=== PATIENT | male | born 1960 | race African-American/Black ===

== ENCOUNTER 2019-03-01 11:52 | Emergency (ER) | payer OTHER ==
[~2019-03-01] VITALS: Ht 175.3 cm; Wt 94.3 kg
[2019-03-01 12:12] VITALS: Ht 175.3 cm; Wt 94.3 kg
[2019-03-01 12:56] LABS: CALCIUM 8.3 mg/dL (8.5-10.1); CARBON DIOXIDE 25.1 mmol/L (21-32); CREATININE SERUM 1.6 mg/dL (0.7-1.3); POTASSIUM SERUM 3.9 mmol/L (3.5-5.1)
[2019-03-01 13:00] LABS: BASOPHIL % 0.7 % (0-2); PLATELET COUNT 203 x10^3mcL (130-400); RED CELL DISTRIBUTION WIDTH 15.3 % (11.5-14.5)
[2019-03-01 13:01] LABS: ALBUMIN 3.3 g/dL (3.4-5.0); BILIRUBIN TOTAL 0.35 mg/dL (0.20-1.00); TOTAL PROTEIN, SERUM 6.8 g/dL (6.4-8.2)
[2019-03-01 18:01] VITALS: BP 106/70
== END 2019-03-01 16:03 | disposition home or self-care (01) ==
LOC: ED 11:52
PROVIDERS: Emergency Medicine
DX: I20.9 Angina pectoris, unspecified (principal)
CPT/HCPCS: 83880; J3010; Q0092

== ENCOUNTER 2019-03-24 01:26 | Inpatient (IN) | payer OTHER ==
[2019-03-24] VITALS (7 sets, daily range): BP systolic 115–186; BP diastolic 69–119; Ht 175.3 cm; Wt 100.0 kg
[~2019-03-24] VITALS: Ht 175.3 cm; Wt 100.0 kg
--- NOTE | 2019-03-24 01:38 | NUR ---
PT CAME TO ED CO CHEST PAIN X6 HOURS. PT STS THE PAIN IS PRESSURE PAIN THAT RADIATES TO THE BACK. PT A/O X4. NO S/S OF DISTRESS. RESP E/U. DR. BORDEN CONPLETED MSE. 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 PT WAS GIVEN 6 ROUND OF NITRO PRIOR TO ARRIVAL THAT UNSUCCESSFULLY RELIEVED PAIN. PT STS HE WAS LAYING DOWN WHEN THE PAIN STARTED. COMFORT MEASURES IMPLEMENTED. LAB AT BEDSIDE FOR BLOOD DRAW. EKG PREFORMED. CIM STAFF AT BEDSIDE. WILL CONTINUE TO MONITOR.
[2019-03-24] MEDS ORDERED: CARVEDILOL25 M1 PO (01:50)
[2019-03-24] MEDS ORDERED: ACETAMINOPHEN A1 TAB PO (01:50)
[2019-03-24] MEDS ORDERED: CHLORTHALIDONE25 MG PO (01:51)
[2019-03-24] MEDS ORDERED: PRO60 PO (01:51)
[2019-03-24] MEDS ORDERED: LISINOPRIL40 MG PO (01:51)
[2019-03-24] MEDS ORDERED: [UNRECOGNIZED DRUG - OTHER] (01:52)
[2019-03-24] MEDS ORDERED: ALDACTONE50 MG PO (01:52)
[2019-03-24] MEDS ORDERED: TRI-VI-SOL50 ML (01:52)
[2019-03-24] MEDS ORDERED: EFFIENT10 M2 PO (01:53)
[2019-03-24] MEDS ORDERED: HYDRALAZINE HC100 MG PO (01:53)
[2019-03-24] MEDS ORDERED: KAPVAY0.1 MG PO (01:53)
[2019-03-24] MEDS ORDERED: RANEXA1000 M2 PO (01:53)
[2019-03-24] MEDS ORDERED: LIPITOR80 MG PO (01:53)
[2019-03-24] MEDS ORDERED: ISOSORBIDE MONO60 MG PO (01:54)
[2019-03-24] MEDS ORDERED: NEU300 PO (01:54)
[2019-03-24] MEDS ORDERED: ASPIR 8181 MG PO (01:54)
[2019-03-24] MEDS ORDERED: NIT0.4 SL (01:54)
[2019-03-24 01:59] LABS: BASOPHIL % 0.8 % (0-2); PLATELET COUNT 195 x10^3mcL (130-400)
[2019-03-24 02:00] LABS: RED CELL DISTRIBUTION WIDTH 15.8 % (11.5-14.5)
[2019-03-24 02:06] LABS: CALCIUM 8.6 mg/dL (8.5-10.1); CARBON DIOXIDE 26.4 mmol/L (21-32); CHLORIDE SERUM 104 mmol/L (98-107); CREATININE SERUM 1.3 mg/dL (0.7-1.3); GFR1 > 60 mL/min; GLUCOSE SERUM 106 mg/dL (74-106); SODIUM SERUM 139 mmol/L (136-145)
[2019-03-24 02:10] LABS: ALBUMIN 3.6 g/dL (3.4-5.0); ALKALINE PHOSPHATASE 120 U/L (46-116); ALT/SGPT 38 U/L (16-63); AST/SGOT 22 U/L (15-37); BILIRUBIN TOTAL 0.26 mg/dL (0.20-1.00); LIPASE 69 IU/L (73-393); TOTAL PROTEIN, SERUM 7.3 g/dL (6.4-8.2); TRIGLYCERIDES 124 mg/dL (<150)
[2019-03-24 02:14] LABS: CHOLESTEROL 133 mg/dL (<200); CHOLESTEROL/HDL RATIO 4.3; HDL CHOLESTEROL 31 mg/dL (40-60)
[2019-03-24 02:20] LABS: T3 TOTAL 1.33 ng/mL
[2019-03-24 02:26] LABS: FREE T4 0.97 ng/dL (0.76-1.46); FREE THYROXINE INDEX 2.7 ug/dL (1.4-4.5); T4(THYROXINE) 6.8 ug/dL (4.7-13.3)
[2019-03-24 03:40] LABS: MAGNESIUM 1.7 mg/dL (1.8-2.4)
--- NOTE | 2019-03-24 03:40 | NUR ---
REPORT CALLED TO HENRI POOL TO ASSUME CARE OF PT
--- NOTE | 2019-03-24 03:53 | NUR ---
RECEIVED PT FROM ED VIA EMILY, CAME IN DUE TO CHEST PAIN. AAOX4. C/O LIGHTHEADEDNESS AND DIZZINESS. ABLE TO FOLLOW COMMADNS. C/O MILD SOB, LUNG SOUNDS CTA. O2 SAT=98% ON 5LPM/NC. C/O 8/10 LEFT SIDED CHEST PAIN RADIAITING ON THE LEFT JAW AND SHOULDER, SR W/ BBB ON THE MONITOR. C/O NUMBNESS ON THE LEFT FINGERS. DENIES ABDOMINAL DISCOMFORT. VOIDS. IV SITE PATNENT AND INTACT. W/ CLONIDINE PATCH ON THE LEFT SHOULDER (DATED 03/18/19). JV=066/125, REPEAT JN=052/119. PRIMARY NURSE HENRI AT BEDSIDE FOR CONTINUITY OF CARE
--- NOTE | 2019-03-24 04:05 | NUR ---
PT TRANSFERRED TO TELE FLOOR ACCOMPANIED BY NURSE, EMT, AND CIM STAFF. NO S/S OF DISTRESS. RESP E/U. NURSE MADE AWARE OF FLUIDS ON TRANSFER. PT CONNECTED TO MONITOR. DURING TRANSFER. IV SITE PATENT. NO S/S OF INFILTRATION. RN AT BEDSIDE TO ASSUME CARE.
--- NOTE | 2019-03-24 06:12 | NUR ---
PT COMPLIED WITH NURSING CARE THROUGHOUT THE SHIFT. COMFORT AND SAFETY MEASURES MAINTAINED. ALL NEEDS ASSESSED AND ATTENDED TO. CALL LIGHT WITHIN REACH. WILL CONTINUE TO MONITOR AND ENDORSE CARE TO DAY SHIFT NURSE
--- NOTE | 2019-03-24 08:00 | NUR ---
SHIFT ASSESSMENT DONE. PATIENT A/A/OX4; CLEAR SPEECH. TELE#14; NSR; HR = 78. C/O CHEST PAIN ON 02/08, NO REDIATION NOW. GOOD PAIN RELIEF BY MORPHINE 2MG IVP Q4H. TOLERATED 2GM SODIUM DIET. IVHL'D TO RAC. VOID FREELY VIA URINAL. AMBULATORY. CALL LIGHT IN REACH.
--- NOTE | 2019-03-24 09:15 | NUR ---
DR. RUBALCAVA CAME TO SEE PATIENT.
--- NOTE | 2019-03-24 13:45 | NUR ---
DR. TORRE SAW PATIENT. NEW ORDER OF CARDIAC STRESS TEST TOMORROW AT 10 AM.
[2019-03-24 15:33] LABS: microscopic required? YES; urine erythrocyte NEGATIVE (NEGATIVE)
[2019-03-24 15:35] LABS: AMPHETAMINE QUAL UR NONE DETECTED (See below)
--- NOTE | 2019-03-24 19:00 | NUR ---
CONDITION NO SIGNIFICANT CHANGE. ASKED MORPHINE Q4H FOR CHEST PAIN. GOOD CHEST PAIN RELIEF BY MORPHINE 2MG IVP. GOOD APPETITE. VOID VIA URINAL. NO BM THIS SHIFT. IVHL'D TO RAC. ENDORSED CARE TO NOC NURSE.
--- NOTE | 2019-03-24 19:20 | NUR ---
REPORT RECEIVED FROM DAY SHIFT RN. PATIENT WAS SEEN AND IS RESTING COMFORTABLY IN BED. NO DISTRESS NOTED. BREATHING EVEN AND UNLABORED ON 5L NC. NO SOB OR RESP DISTRESS NOTED. C/O TOLERABLE CHEST PAIN, BACK PAIN 5/10. AWARE MORPHINE IS NOT DUE AT THIS TIME. IV TO THE RAC. SALINE LOCK. PATENT AND INTACT. NO REDNESS OR SWELLING NOTED. COMFORT AND SAFETY MEASURES IN PLACE. BED IS LOCKED AND IN THE LOWEST POSITION. SIDE RAILS UP X2. CALL LIGHT IS WITHIN REACH. WILL CONTINUE TO MONITOR.
--- NOTE | 2019-03-24 22:37 | NUR ---
C/O 01/08 CHEST PAIN, BUT STATES IT'S IMPROVING FROM WHEN HE WAS ADMITTED. PRN MORPHINE WAS ADMINISTERED PRESCRIBED. MED EDUCATION GIVEN. NO SOB OR RESP DISTRESS NOTED. BREATHING EVEN AND UNLABORED ON 5L NC. SAFETY MEASURES IN PLACE. PLACE PATIENT ON NEW GOWN. LOLLY CRACKER, PUDDING, WATER, AND SPRITE GIVEN. PATIENT IS AWARE HE WILL BE NPO AFTER MIDNIGHT. CALL LIGHT IS WITHIN REACH. WILL CONTINUE TO MONITOR.
--- NOTE | 2019-03-25 02:39 | NUR ---
CALLED REPORTING CHEST PAUN 12/09. LOW BP 105/56M, SO MORPHINE CANNNOT BE GIVEN AT THIS TIME. PATIENT IS AWARE. PRN NORCO ADMINSITERED INSTEAD (SEE EMAR). MED EDUCATION GIVEN. NO DISTRESS NOTED. BREATHING EVEN AND UNLABORED ON 5L NC. SAFETY MEASURES IN PLACE. CALL LIGHT IS WITHIN REACH. WILL CONTINUE TO MONITOR.
[2019-03-25 05:23] VITALS: BP 98/55
--- NOTE | 2019-03-25 05:49 | NUR ---
RESTED IN LONG INTERVALS THROUGHOUT THE NIGHT. NO ACUTE CHANGES NOTED. BREATHING EVEN AND UNLABORED ON 5L NC. NO SOB NOTED. NO DISTRESS NOTED. C/O CHEST PRESSURE THROUGHOUT THE NIGHT. TROP NEG X3. SCHEDULED FRO CARDIAC STRESS TEST AT 10AM. PATIENT IS AWARE AND IS NPO. IV TO THE RAC. SALINE LOCK, PATENT AND INTACT. NO REDNESS OR SWELLING NOTED. COMFORT AND SAFETY MEASURES IN PLACE. ALL NEEDS AND CONCERNS ADDRESSED. CALL LIGHT IS WITHIN REACH. WILL ENDORSE CARE TO DAY SHIFT RN.
--- NOTE | 2019-03-25 06:36 | NUR ---
PRN NORCO GIVEN FOR CHEST PRESSURE 12/09. LOW BP 97/62 (77), HR 80 , SO MORPHINE COULDN'T BE GIVEN. PATIENT AWARE. WILL ENDORSE CARE TO DAY SHIFT RN.
[2019-03-25 07:35] LABS: CALCIUM 8.5 mg/dL (8.5-10.1); CARBON DIOXIDE 26.2 mmol/L (21-32); CREATININE SERUM 1.9 mg/dL (0.7-1.3); POTASSIUM SERUM 4.5 mmol/L (3.5-5.1)
--- NOTE | 2019-03-25 07:40 | NUR ---
RCEIVED PATIENT RESTING IN BED, NO ACUTE DISTRESS NOTED. PATIENT DENIES PAIN. PATIENT C/O DIZZINESS, DR. RUBALCAVA MADE AWARE. TELE MONITOR IN PLACE. PATIENT DENIES SOB, ON 5L NC. URINAL AT BEDSIDE. GENERALIZED WEAKNESS NOTED. IV TO RAC SALINE LOCK, IV SITE CDI & PATENT, NO S/S OF INFILTRATION. CALL LIGHT WITHIN REACH, BED IN LOW POSITION, WILL CONTINUE TO MONITOR.
[2019-03-25 07:46] LABS: BASOPHIL % 0.7 % (0-2); PLATELET COUNT 183 x10^3mcL (130-400)
[2019-03-25 07:53] LABS: RED CELL DISTRIBUTION WIDTH 16.5 % (11.5-14.5)
[2019-03-25 08:02] VITALS: BP 101/66
--- NOTE | 2019-03-25 09:10 | NUR ---
PATIENT WENT DOWN FOR STRESS TEST AT THIS TIME.
--- NOTE | 2019-03-25 09:30 | NUR ---
DR RUBALCAVA AWARE PATIENTS WBC WAS 3.5.
--- NOTE | 2019-03-25 12:04 | NUR ---
PATIENT ARRIVED BACK FROM STRESS TEST.
--- NOTE | 2019-03-25 12:09 | NUR ---
PATIENT WAS C/O PAIN 02/08 TO RIGHT WRIST, MEDICATED PATIENT WITH NORCO PER PROTOCOL (SEE EMAR). EDUCATED PATIENT ON PAIN MANAGEMENT. CALL LIGHT WITHIN REACH, BED IN LOW POSITION, WILL CONTINUE TO MONITOR.
--- NOTE | 2019-03-25 12:20 | NUR ---
DR RUBALCAVA AWARE PATIENT FELL DOWN IN [place] for [employer] MED. DR. RUBALCAVA AWARE PATIENTS RIGHT WRIST WAS HURTING AND FEELING PRESSURE. DR. RUBALCAVA GAVE TELEPHONE ORDERS FOR XRAY TO RIGHT WRIST, WILL CARRY OUT ORDERS AT THIS TIME.
--- NOTE | 2019-03-25 13:00 | NUR ---
MOONER AT BEDSIDE.
[2019-03-25 13:07] VITALS: BP 131/88
--- NOTE | 2019-03-25 13:18 | NUR ---
PATIENT IS TO BE DISCHARGED TO [facility], PATIENT RECEIVED COPY OF D/C INSTUCTIONS, PATIENT UNDERSTANDS & AGREES WITH PLAN OF CARE, INCLUDING MEDICATIONS & FOLLOW UP. ALL QUESTIONS AND CONCERNS ADDRESSED. CALL LIGHT WITHIN REACH, BED IN LOW POSITION, WILL CONTINUE TO MONITOR.
--- NOTE | 2019-03-25 14:20 | NUR ---
DR RUBALCAVA AWARE PATIENT XRAY TO RIGHT WRIST CAME BACK NEGATIVE, WITH PROBABLE DIABETIC VASCULOPATHY. DR. RUBALCAVA STATED OKAY FOR DISCHARGE.
[2019-03-25 14:38] VITALS: BP 131/88
--- NOTE | 2019-03-25 16:27 | NUR ---
PATIENT WENT DOWN DOWN VIA WHEELCHAIR. LA KING X3 AT BEDSIDE, IV TO RAC REMOVED, CATH INTACT. ARMBANDS & TELE MONITOR REMOVED.
== END 2019-03-25 16:10 | disposition other institution (70) | DRG 305 ==
LOC: ED 01:26 → DU 03:13
PROVIDERS: Specialist; ADMIT Internal Medicine
DX: I16.0 Hypertensive urgency (principal); I13.0 Hypertensive heart and chronic kidney disease with heart failure and stage 1 through stage 4 chronic kidney disease, or unspecified chronic kidney disease; D57.3 Sickle-cell trait; I25.10 Atherosclerotic heart disease of native coronary artery without angina pectoris; I50.9 Heart failure, unspecified; N18.9 Chronic kidney disease, unspecified; M54.5 Low back pain; G89.29 Other chronic pain; E78.5 Hyperlipidemia, unspecified; I25.2 Old myocardial infarction; Z95.2 Presence of prosthetic heart valve; Z95.1 Presence of aortocoronary bypass graft; Z95.5 Presence of coronary angioplasty implant and graft; Z79.899 Other long term (current) drug therapy
CPT/HCPCS: 83880; 84439; A9500; G0378; J0360; J2270; J2405; J2785; J3490; J7030; Q0092

== ENCOUNTER 2019-04-14 01:38 | Inpatient (IN) | payer OTHER ==
[~2019-04-14] VITALS: Ht 175.3 cm; Wt 97.1 kg
[~2019-04-14 01:38] MED LIST: ACETAMINOPHEN A1 TAB PO; ALDACTONE50 MG PO; ASPIR 8181 MG PO; CARVEDILOL25 M1 PO; CHLORTHALIDONE25 MG PO; EFFIENT10 M2 PO; HYDRALAZINE HC100 MG PO; ISOSORBIDE MONO60 MG PO; KAPVAY0.1 MG PO; LIPITOR80 MG PO; LISINOPRIL40 MG PO; NEU300 PO; NIT0.4 SL; PRO60 PO; RANEXA1000 M2 PO; TRI-VI-SOL50 ML; [UNRECOGNIZED DRUG - OTHER]
[2019-04-14 01:39] VITALS: Ht 175.3 cm; Wt 97.1 kg
[2019-04-14 02:06] LABS: BASOPHIL % 0.5 % (0-2); PLATELET COUNT 213 x10^3mcL (130-400)
[2019-04-14 02:13] LABS: CALCIUM 8.8 mg/dL (8.5-10.1); CARBON DIOXIDE 25.2 mmol/L (21-32); CREATININE SERUM 1.4 mg/dL (0.7-1.3); POTASSIUM SERUM 3.7 mmol/L (3.5-5.1)
[2019-04-14 02:19] LABS: ALBUMIN 3.8 g/dL (3.4-5.0); BILIRUBIN TOTAL 0.25 mg/dL (0.20-1.00); TOTAL PROTEIN, SERUM 7.7 g/dL (6.4-8.2)
[2019-04-14 02:26] LABS: RED CELL DISTRIBUTION WIDTH 15.3 % (11.5-14.5)
[2019-04-14] MEDS ORDERED: ASPIR 8181 MG PO (02:45)
[2019-04-14] MEDS ORDERED: ACETAMINOPHEN A1 TAB PO (02:45)
[2019-04-14] MEDS ORDERED: ATORVASTATIN CA80 M1 PO (02:46)
[2019-04-14] MEDS ORDERED: CARVEDILOL25 M1 PO (02:47)
[2019-04-14] MEDS ORDERED: CORE25 PO (02:48)
[2019-04-14] MEDS ORDERED: CHLORTHALIDONE25 MG PO (02:49)
[2019-04-14] MEDS ORDERED: NEU300 PO (02:50)
[2019-04-14] MEDS ORDERED: ISOSORBIDE MONO60 MG PO (02:51)
[2019-04-14] MEDS ORDERED: LISINOPRIL20 MG PO (02:51)
[2019-04-14] MEDS ORDERED: PRO60 (02:52)
[2019-04-14] MEDS ORDERED: NITROSTAT0.4 MG SL (02:53)
[2019-04-14] MEDS ORDERED: EFFIENT10 M2 PO (02:54)
[2019-04-14] MEDS ORDERED: RANEXA1000 M2 (02:55)
[2019-04-14] MEDS ORDERED: [UNRECOGNIZED DRUG - MIXTURE] (02:56)
[2019-04-14] MEDS ORDERED: KEN025C TOP (02:56)
--- NOTE | 2019-04-14 06:06 | NUR ---
REPORT GIVEN TO DANIEL POOL PT OT BE TRANSPORTED VIA [facility] WITH URI AND RN
--- NOTE | 2019-04-14 06:42 | NUR ---
CAME IN A 58 YEARS OLD MALE AWAKE, ALERT AND ORIENTED CAME IN VIA GURNEY ACCOMPANIED BY ER STAFF AND CIM OFFICERS. C/O CRUSHING LEFT SIDED CHESTPAIN. MEDICATED IN ER WITH NITRO SL AMD MORPHINE 6MG IVP. TELE# 22 NSR WITH BBB ON MONITOR. KEPT IN COMFORT AND ORIENTED TO ROOM AND DEVICES. IV TO LH HEPLOCKED. WILL ENDORSE CONTINOUS CARE TO AM SHIFT.
--- NOTE | 2019-04-14 07:25 | NUR ---
RECEIVED HAND OFF REPORT FROM NIGHT NURSE. PATIENT SITTING UP IN BED, A/0 X4, ON 2LPM O2 VIA NC, COMPLAINING OF 6/10 PAIN TO CHEST, TELE [address] SHOWING NSR. NO ORDERS CURRENTLY IN CHART. WILL CONTACT DR RUBALCAVA FOR ORDERS. OREINTED PATIENT TO CALL LIGHT SYSTEM AND INSTRUCTED TO USE CALL LIGHT IF NEEDING ASSITANCE. , WILL CONTINUE TO MONITOR
[2019-04-14 07:58] LABS: CHOLESTEROL/HDL RATIO 6.2
[2019-04-14 08:04] VITALS: BP 166/110
--- NOTE | 2019-04-14 08:25 | NUR ---
ORDERS ENTERED BY DR RUBALCAVA. MURALI BLOOD PRESSURE IS ELEVATED MEDICATED PER MAR. MORPHINE 2MG ADMINISTERED FOR PAIN. WILL REASSESS PAIN.
--- NOTE | 2019-04-14 09:50 | NUR ---
DR RUBALCAVA ROUNDED ON PATIENT, UPDATED ON PLAN OF CARE, CONSULTED DR TORRE AND WILL AWAIT HIS RECOMMENDATIONS. DR RUBALCAVA STATED THAT PATIENT DOES NOT NEED TRIAMCINOLONE CREAM THAT HE HAD BEEN TAKING AT THE CORRECTION ULES PATIENT WANTS TO USE IT.
--- NOTE | 2019-04-14 11:33 | NUR ---
REPEAT ECHO PENDING. ECHO STUDY DONE ON LAST ADIMISSION DATE 03/24/19
--- NOTE | 2019-04-14 13:20 | NUR ---
PATIENT COMPLAING OF 6/10 PAIN TO UPPER LEFT CHEST, NON RADIATING. PATIENT DID NOT WANT NITRO STATING THAT IT HAS NOT BEEN WORKING FOR HIM. MEDICATED WITH MORPHINE PER MAR, BLOOD PRESSURE ELEVATED AT THIS TIME. WILL REASSESS
[2019-04-14 14:04] VITALS: BP 152/85
[2019-04-14 15:03] VITALS: BP 144/102
[2019-04-14 16:45] VITALS: BP 139/98
[2019-04-14 16:53] VITALS: BP 141/99
--- NOTE | 2019-04-14 18:15 | NUR ---
PATIENT COMPLAINING OF 6/10 PAIN TO LEFT UPPER CHEST, WORSE ON DEEP BREATHING. MEDICATED PER MAR. BLOOD PRESSURE STABLE. CALL LIGHT WITHIN REACH, X2 CORRECTIONAL OFFICERS IN ROOM
--- NOTE | 2019-04-14 19:35 | NUR ---
RECEIVED PT FROM DAY SHIFT RN. PT AAOX4 DENIES MCKEON/DIZZINESS. PT BREATHING EVEN AND UNLABORED ON NC 2L/MIN. NO SOB NOTED. TELE# 22 NSR HR 59. PT DENIES CHEST PAIN/PRESSURE. IV LH PATENT, SL. ABD SOFT/ROUND ACTIVE BOWEL SOUNDS. DENIES ABD PAIN/N/V. NO SIGNS OF DISTRESS. CALL BUTTON WITHIN REACH. SAFETY PRECAUTIONS IN PLACE. GUARDS AT BEDSIDE. WILL CONTINUE TO MONITOR.
[2019-04-14 20:50] VITALS: BP 146/101
--- NOTE | 2019-04-14 23:12 | NUR ---
PT REQUESTING PAIN MEDICATION FOR BODY WEAKNESS. MEDICATED PER EMAR. CALL BUTTON WITHIN REACH. SAFETY PRECAUTIONS IN PLACE. WILL CONTINUE TO MONITOR.
--- NOTE | 2019-04-15 01:10 | NUR ---
PT RESTING. BREATHING EVEN AND UNLABORED. NO SIGNS OF DISTRESS. CALL BUTTON WITHIN REACH. SAFETY PRECAUTIONS IN PLACE. WILL CONTINUE TO MONITOR. GUARDS AT BEDSIDE.
--- NOTE | 2019-04-15 03:33 | NUR ---
PT RESTING. BREATHING EVEN AND UNLABORED. NO SIGNS OF DISTRESS NOTED. CALL BUTTON WITHIN REACH. SAFETY PRECAUTIONS IN PLACE. WILL CONTINUE TO MONITOR.
--- NOTE | 2019-04-15 05:13 | NUR ---
PT SLEPT MOST OF THE NIGHT WITH NO SIGNS OF DISTRESS. BREATHING EVEN AND UNLABORED ON NC 2L/MIN, NO SOB NOTED. IV PATENT, SL. PT REPORTED HAVING PAIN X1, MEDICATED PER EMAR WITH SOME RELEIF. PT DENIES ANY PAIN/DISTRESS AT THIS TIME. CALL BUTTON WITHIN REACH. SAFETY PRECAUTIONS IN PLACE. WILL CONTINUE TO MONITOR AND ENDORSE CARE TO DAY SHIFT RN. TWO GUARDS AT BEDSIDE.
--- NOTE | 2019-04-15 06:33 | NUR ---
PT REPORTED HAVING LEFT SIDE PAIN 5/10. MEDICATED PER EMAR. CALL BUTTON WITHIN REACH. SAFETY PRECAUTIONS IN PLACE. WILL CONTINUE TO MONITOR.
[2019-04-15 06:40] LABS: BASOPHIL % 0.9 % (0-2); PLATELET COUNT 171 x10^3mcL (130-400)
[2019-04-15 06:41] VITALS: BP 134/79
[2019-04-15 06:41] LABS: RED CELL DISTRIBUTION WIDTH 16.7 % (11.5-14.5)
[2019-04-15 06:49] LABS: CALCIUM 8.8 mg/dL (8.5-10.1); CREATININE SERUM 1.4 mg/dL (0.7-1.3); POTASSIUM SERUM 3.8 mmol/L (3.5-5.1)
--- NOTE | 2019-04-15 07:24 | NUR ---
PT RESTING, DENIES PAIN. NO SIGNS OF DISTRESS NOTED. GUARDS AT BEDSIDE. ENDORSED CARE TO DAY SHIFT RN, ALL QUESTIONS ADDRESSED.
--- NOTE | 2019-04-15 07:30 | NUR ---
RECEIVED PT FROM AUTO GARAGE MECHANIC. PT AWAKE, ALERT. A/OX4. PT ON 2LNC/RA WITH NO RESP DISTRESS NOTED. PT NOT WEARING NC AT THIS TIME. PT ON TELE 22, REPORTS CP 6/10 BUT TOLERABLE AT THIS TIME AFTER BEING MEDICATED BY NOC NURSE. LUNGS CTA. PERIPHERAL PULSES PALPABLE, NO EDEMA NOTED. IV ACCESS LH CDI, SALINE LOCKED. ACTIVE BS NOTED. PT DENIES ISSUES WITH ELIMINATION. SAFETY MEASURES IN PLACE, BED LOW AND LOCKED. CALL LIGHT WITHIN REACH.
[2019-04-15 09:47] VITALS: BP 131/86
--- NOTE | 2019-04-15 11:06 | NUR ---
PT COMPLAINING OF PAIN TO LEFT UPPER CHEST 01/08. PT REQUESTING MORPHINE, MED ADMINISTERED ORDERED PRN. (SEE EMAR). DR TORRE AT BEDSIDE AT THIS TIME. WILL MONITOR.
[2019-04-15 11:17] LABS: microscopic required? NO
--- NOTE | 2019-04-15 11:59 | NUR ---
PT REPORTS SOME RELIEF AFTER ADMINISTRATION OF MORPHINE. PAIN 11/08/ SAFETY MEASURES MAINTAINED. WILL CONTINUE TO MONITOR.
[2019-04-15 12:15] LABS: AMPHETAMINE QUAL UR NONE DETECTED (See below)
[2019-04-15 12:19] LABS: urine erythrocyte NEGATIVE (NEGATIVE)
[2019-04-15 12:28] VITALS: BP 130/81
--- NOTE | 2019-04-15 13:09 | NUR ---
DUE MEDICATIONS ADMINISTERED INCLUDING SCHEDULED TYLENOL WITH CODEINE. PT TOLERATED WELL. PT ASKING FOR NORCO, PAIN 12/09. PT EDUCATION PROVIDED REGARDING POTENTIAL DANGERS OF AMINISTERING TYLENOL WITH CODEINE AND NORCO TOO CLOSE TOGETHER. PT VERBALIZED UNDERSTANDING. WILL MONITOR AND ADMINISTER NORCO AT A LATER TIME.
--- NOTE | 2019-04-15 15:40 | NUR ---
PT COMPLAINING OF PAIN TO CHEST 12/09, ASKING FOR NORCO. MED ADMINISTERED ORDERED PRN. PT DESCRIBES IT CONSTANT PRESSURE. WILL CONTINUE TO MONITOR.
[2019-04-15 16:04] VITALS: BP 139/86
--- NOTE | 2019-04-15 16:34 | NUR ---
PT REPORTING CHEST PAIN 8/10 PRESSURE. PT REPORTING DIAPHORESIS. NITROSTAT ADMINISTERED ORDERED PRN.
--- NOTE | 2019-04-15 16:45 | NUR ---
AKIL POOL REPORTED PT HAVING 8/10 CHEST PAIN PRESSURE IN NATURE AND SHE IS NOW TO ADMINISTER NITRO SL ORDERED. CALLED AND SPOKE TO (HOSPITAL AIDE) AND MADE HIM AWARE OF CHEST PAIN, NEW ORDER RECEIVED STAT TROPONIN AND STAT EKG AND TO TRANSFER PT TO HIGHER LEVEL OF CARE FOR REPEAT ANGIOGRAM DUE TO RECURRING CHEST PAIN. CALLED AND SPOKE TO PATTIE FROM CASE MANAGEMENT AND MADE HER AWARE OF ABOVE. AKIL POOL ASSIGNED TO THIS PT MADE AWARE OF ABOVE.
--- NOTE | 2019-04-15 17:05 | NUR ---
SECOND DOSE NITRO ADMINISTERED. PT REPORTS PAIN 01/08
--- NOTE | 2019-04-15 17:08 | NUR ---
VS: BP 141/99, HR 68, RR 20, O2 SAT 96%.
--- NOTE | 2019-04-15 17:10 | NUR ---
THIRD DOSE OF NITRO ADMINISTERED TO PT.
--- NOTE | 2019-04-15 17:15 | NUR ---
VS: BP 118/75, HR 63, O2 SAT 97%, RR 20. PT REPORTS PAIN 5/10 AT THIS TIME AND MUCH BETTER.
--- NOTE | 2019-04-15 17:27 | NUR ---
CALLED AND SPOKE TO AND UPDATED HIM OF PT STAT EKG RESULT AND MADE HIM AWARE OF PT RESPONSE TO NITRO SL AND MORPHINE AND ALSO TROPININ RESULT IS STILL PENDING. ALSO SAID ITS OKAY TO TRANSFER PT TOMORROW FOR ANGIOGRAM FOR [facility]. (ATTENDING) MADE AWARE OF PT C/O CHEST PAIN AND THAT IS VERY MUCH AWARE AND MADE HIM AWARE TOO OF 'S ORDER TO TRANSFER PT TO [facility] FOR CARDIAC CATH AND SAYS OKAY. AKIL POOL ASSIGNED TO THIS PT MADE AWARE OF ABOVE. SPOKE TO PT AND UPDATED HIM OF HIS TREATMENT AND PLAN OF CARE AND VERBALIZED UNDERSTANDING.
--- NOTE | 2019-04-15 17:54 | NUR ---
TYLENOL WITH CODEINE HELD AT THIS TIME, PT BP 109, HR 66. PT PAIN TOLERABLE AT THIS TIME
--- NOTE | 2019-04-15 18:00 | NUR ---
CHARGE NURSE MADE AWARE. PT GIVEN MORPHINE AT THIS TIME PRN. VS: BP 157/108 HR 69, O2 SAT 98% ON 2LNC, RR 22.
--- NOTE | 2019-04-15 18:02 | NUR ---
NEW ORDERS GIVEN. EKG AT BEDSIDE, STAT TROP.
--- NOTE | 2019-04-15 18:52 | NUR ---
RECEIVED A CALL FROM PATTIE(REGIONAL WILDLIFE AGENT) AND SAYS PT ACCEPTED AND HAD A BED AT [facility], [id number], TO CALL REPORT AT AND ACCEPTING MD: DR.DARREN GAUTAM. CALLED AND SPOKE TO (ATTENDING) AND MADE HIM AWARE OF ABOVE. NEW ORDER RECEIVED OKAY TO TRANSFER PT TO [facility] AND SAYS TO CONTINUE CURRENT INPATIENT HOSPITAL MEDICATION, PLS SEE DISCHARGE ORDER MEDICATION IN CPOE. CALLED AND SPOKE TO AND MADE HIM AWARE OF PT ACCEPTANCE AND TRANSFER TO [facility] AND HAD CLEARED THE PT AND OKAY TO TRANSFER TONIGHT. AKIL RN ASSIGNED TO THIS PT MADE AWARE OF ABOVE. ENDORSED TO MADHU POOL ASSIGNED TO THIS PT AT NT SHIFT THAT ONCE CIM GUARD DETERMINES TIME OF THEIR JARRETT CAR ARRIVAL TO ARRANGE [facility] PRINT DESIGNER TIME.
--- NOTE | 2019-04-15 19:08 | NUR ---
CALLED REPORT TO [facility], GAVE REPORT TO LAURA. PT DISCHARGE PAPERWORK/ EDUCATION PROVIDED TO PT. PT TO BE TRANSFERRED TONIGHT. ALL NEEDS TENDED TO THROUGHOUT SHIFT. WILL CONTINUE TO MONITOR AND ENDORSE CARE TO RESEARCH AND DEVELOPMENT TECHNICIAN.
--- NOTE | 2019-04-15 19:46 | NUR ---
ALL NEEDS TENDED TO THROUGHOUT SHIFT. ENDORSED CARE TO ONCOMING NURSE. PT STABLE AT THIS TIME.
--- NOTE | 2019-04-15 20:20 | NUR ---
[facility] TRANSPORT[facility] IS HERE, ALL QUESTIONS ANSWERED AND CONCERNS ADDRESSED. TELE MONITOR REMOVED, PT IS AAO X 4, ON O2 2L VIA NC WITH NO RESP DISTRESS NOTED. ALL BELONGINGS SENT.
--- NOTE | 2019-04-16 08:40 | NUR ---
CANCELLATION REQUESTED FOR ECHOCARDIOGRAM
== END 2019-04-15 20:22 | disposition short-term general hospital (02) | DRG 311 ==
LOC: ED 01:38 → DU 04:46
PROVIDERS: Emergency Medicine; ADMIT Internal Medicine
DX: I24.9 Acute ischemic heart disease, unspecified (principal); I13.0 Hypertensive heart and chronic kidney disease with heart failure and stage 1 through stage 4 chronic kidney disease, or unspecified chronic kidney disease; G89.29 Other chronic pain; M54.5 Low back pain; I25.118 Atherosclerotic heart disease of native coronary artery with other forms of angina pectoris; E78.5 Hyperlipidemia, unspecified; I35.0 Nonrheumatic aortic (valve) stenosis; F41.9 Anxiety disorder, unspecified; F32.9 Major depressive disorder, single episode, unspecified; N18.9 Chronic kidney disease, unspecified; Z95.2 Presence of prosthetic heart valve; Z95.1 Presence of aortocoronary bypass graft; Z95.5 Presence of coronary angioplasty implant and graft; Z79.899 Other long term (current) drug therapy
CPT/HCPCS: G0378; J2270; Q0092

== ENCOUNTER 2019-07-09 01:40 | Inpatient (IN) | payer OTHER ==
[~2019-07-09] VITALS: Ht 175.3 cm; Wt 97.7 kg
[~2019-07-09 01:40] MED LIST changes: +ATORVASTATIN CA80 M1 PO; +CORE25 PO; +KEN025C TOP; +LISINOPRIL20 MG PO; +NITROSTAT0.4 MG SL; +PRO60; +RANEXA1000 M2; +[UNRECOGNIZED DRUG - MIXTURE]
[2019-07-09 01:44] VITALS: Ht 175.3 cm; Wt 97.7 kg
[2019-07-09 02:54] LABS: CALCIUM 8.9 mg/dL (8.5-10.1); CARBON DIOXIDE 28.4 mmol/L (21-32); CHLORIDE SERUM 103 mmol/L (98-107); CREATININE SERUM 1.2 mg/dL (0.7-1.3); GFR1 > 60 mL/min; GLUCOSE SERUM 104 mg/dL (74-106); POTASSIUM SERUM 3.5 mmol/L (3.5-5.1); SODIUM SERUM 140 mmol/L (136-145)
[2019-07-09 02:58] LABS: ALBUMIN 3.9 g/dL (3.4-5.0); ALKALINE PHOSPHATASE 104 U/L (46-116); ALT/SGPT 51 U/L (16-63); AST/SGOT 27 U/L (15-37); BILIRUBIN TOTAL 0.32 mg/dL (0.20-1.00); TOTAL PROTEIN, SERUM 7.7 g/dL (6.4-8.2)
[2019-07-09 03:43] LABS: BASOPHIL % 0.7 % (0-2); PLATELET COUNT 209 x10^3mcL (130-400); RED CELL DISTRIBUTION WIDTH 14.1 % (11.5-14.5)
[2019-07-09] MEDS ORDERED: PROCARDIA XL90 MG PO (05:13)
[2019-07-09] MEDS ORDERED: CORE25 PO (05:14)
[2019-07-09] MEDS ORDERED: LOTENSIN40 MG PO (05:14)
[2019-07-09 08:19] VITALS: BP 172/116
[2019-07-09 13:19] VITALS: BP 136/91
[2019-07-09 14:45] LABS: MAGNESIUM 2.3 mg/dL (1.8-2.4)
[2019-07-09 16:04] VITALS: BP 169/105
[2019-07-09 19:13] LABS: microscopic required? NO
[2019-07-09 19:26] LABS: urine erythrocyte NEGATIVE (NEGATIVE)
[2019-07-09 19:36] LABS: AMPHETAMINE QUAL UR NONE DETECTED (See below)
[2019-07-09 21:04] VITALS: BP 157/99
[2019-07-10 05:18] VITALS: BP 154/100
[2019-07-10 06:16] LABS: BASOPHIL % 0.5 % (0-2); PLATELET COUNT 182 x10^3mcL (130-400)
[2019-07-10 06:20] LABS: CALCIUM 8.8 mg/dL (8.5-10.1); CARBON DIOXIDE 30.5 mmol/L (21-32); CHLORIDE SERUM 102 mmol/L (98-107); CREATININE SERUM 1.3 mg/dL (0.7-1.3); GFR1 > 60 mL/min; GLUCOSE SERUM 90 mg/dL (74-106); POTASSIUM SERUM 3.5 mmol/L (3.5-5.1); SODIUM SERUM 137 mmol/L (136-145)
[2019-07-10 06:42] LABS: RED CELL DISTRIBUTION WIDTH 15.2 % (11.5-14.5)
[2019-07-10 08:40] VITALS: BP 161/96
[2019-07-10 12:15] VITALS: BP 169/105
[2019-07-10 15:54] VITALS: BP 139/83
[2019-07-10 20:43] VITALS: BP 156/57
[2019-07-11 05:21] VITALS: BP 161/96
[2019-07-11 07:30] VITALS: BP 176/89
[2019-07-11 11:42] VITALS: BP 160/93
== END 2019-07-11 13:12 | disposition other institution (70) | DRG 313 ==
LOC: ED 01:40 → IC 05:24 → DU 17:32 → IC 17:35 → DU 18:48
PROVIDERS: Emergency Medicine; Internal Medicine Cardiovascular Disease; ADMIT Internal Medicine
DX: R07.89 Other chest pain (principal); I13.0 Hypertensive heart and chronic kidney disease with heart failure and stage 1 through stage 4 chronic kidney disease, or unspecified chronic kidney disease; I16.1 Hypertensive emergency; I25.10 Atherosclerotic heart disease of native coronary artery without angina pectoris; Z95.1 Presence of aortocoronary bypass graft; N18.9 Chronic kidney disease, unspecified; I50.9 Heart failure, unspecified; E78.5 Hyperlipidemia, unspecified; F32.9 Major depressive disorder, single episode, unspecified; F41.9 Anxiety disorder, unspecified
CPT/HCPCS: 83880; G0378; J1644; J2270; J3490; J7030; J7040; J7620; Q0092; Q9967